=== PATIENT | female | born 1930 | race Caucasian/White ===

== ENCOUNTER 2018-09-03 05:11 | Emergency (ER) | payer BC, MEDICARE ==
[2018-09-03] MEDS ORDERED: Ketorolac 30 MG/ML SDV IM ONE (05:35)
[2018-09-03] MEDS ORDERED: Cyclobenzaprine 10 MG Tab PO ONE (05:35)
[2018-09-03] MEDS ORDERED: Nitroglycerin 0.4 MG Tab.SL SL ONE (05:37)
--- NOTE | 2018-09-03 05:39 | EDM.PDOC ---
<OfficerJay - Last Filed: 09/03/18 05:36> ED HPI GENERAL MEDICAL PROBLEM - General Chief Complaint: Upper Extremity Injury/Pain Stated Complaint: MEDICAL VIA [facility] Time Seen by Provider: 09/03/18 05:31 Source of Information: Reports: Patient, EMS, RN Notes Reviewed History Limitations: Reports: No Limitations - History of Present Illness INITIAL COMMENTS - FREE TEXT/NARRATIVE: 88-year-old female presents to the emergency department today complaint of hip pain she has a known history of hip replacement on her left side she states she has been shoveling snow 34 days ago and now the pain has gotten significantly worse she has been using Tylenol but is not helping she feels like she is having muscle spasms denies any trauma Left Hip Pain Score (Numeric/FACES): 10 - Related Data Allergies Allergy/AdvReac Type Severity Reaction Status Date / Time No Known Allergies Allergy Verified 09/03/18 05:15 Home Meds: Home Meds Losartan/Hydrochlorothiazide [Losartan-HCTZ 100-25 MG] 1 tab PO DAILY 09/03/18 [ History] Sertraline HCl 50 mg PO DAILY 09/03/18 [History] Past Medical History HEENT History: Reports: Cataract, Impaired Vision Cardiovascular History: Reports: Hypertension Gastrointestinal History: Reports: [employer] History: Reports: Musculoskeletal History: Reports: Fracture Neurological History: Reports: Neuropathy, Peripheral Psychiatric History: Reports: Anxiety, Depression Endocrine/Metabolic History: Reports: Diabetes, Type II Oncologic (Cancer) History: Reports: Basal Cell Carcinoma Other Oncologic History: skin cancer Dermatologic History: Reports: Other (See Below) Other Dermatologic History: Skin cancer - Past Surgical History HEENT Surgical History: Reports: Cataract Surgery GI Surgical History: Reports: Appendectomy, Cholecystectomy Female Surgical History: Reports: Hysterectomy Musculoskeletal Surgical History: Reports: Hip Replacement Social & Family History - Tobacco Use Smoking Status *Q: Never Smoker - Recreational Drug Use Recreational Drug Use: No Review of Systems - Review of Systems Review Of Systems: See Below Musculoskeletal: Reports: Joint Pain (Left hip pain), Muscle Pain, Muscle Stiffness ED EXAM, GENERAL - Physical Exam Exam: See Below Free Text/Narrative:: Examination left hip I can't elicit any specific tenderness with internal/ external rotation flexion-extension of left hip she does complain of generalized pain throughout the thigh buttocks area Exam Limited By: No Limitations General Appearance: Alert, WD/WN, No Apparent Distress Respiratory/Chest: No Respiratory Distress Course - Vital Signs Last Recorded V/S: Last Vital Signs Temp 97.0 F 09/03/18 05:17 Pulse 83 09/03/18 06:13 Resp 20 09/03/18 06:13 BP 180/76 H 09/03/18 06:13 Pulse Ox 93 L 09/03/18 06:13 - Orders/Labs/Meds Meds: Medications Discontinued Medications Generic Name Dose Route Start Last Admin Trade Name Latosha PRN Reason Stop Dose Admin Cyclobenzaprine HCl 10 mg 09/03/18 05:35 09/03/18 05:47 Flexeril PO 09/03/18 05:36 10 mg ONETIME ONE Administration Fentanyl 50 mcg 09/03/18 06:11 09/03/18 06:18 Sublimaze IM 09/03/18 06:12 50 mcg ONETIME ONE Administration Ketorolac Tromethamine 15 mg 09/03/18 05:35 09/03/18 05:48 Toradol IM 09/03/18 05:36 15 mg ONETIME ONE Administration Nitroglycerin 0.4 mg 09/03/18 05:37 09/03/18 05:48 Nitrostat SL 09/03/18 05:38 0.4 mg ONETIME ONE Administration Departure - Departure Disposition: Home, Self-Care 01 Clinical Impression: Acute pain of left hip - Discharge Information Instructions: Musculoskeletal Pain Referrals: PCP,None [Primary Care Provider] - Forms: ED Department Discharge Care Plan Goals: Continue any current medications, take 2 Aleve twice daily and add stronger pain medication if needed as prescribed. Increase activity as tolerated and consider rechecking in 2-3 days if not improving satisfactorily as you may need a physical therapy consultation or orthopedic evaluation. <Cale Diaz - Last Filed: 09/03/18 08:44> Course - Re-Assessments/Exams Free Text/Narrative Re-Assessment/Exam: 09/03/18 07:22 Accepted care from Officer pending a hip x-ray. The hip x-ray does show previous hip surgery with total hip as well as internal fixation of the proximal femur. Everything looks good, no new fracture and patient is feeling better. She'll be discharged with 10 Vicodin to use as needed along with Aleve and can recheck if not improving in the next few days. Departure - Departure Time of Disposition: 08:27 Condition: Good
[2018-09-03] MEDS ORDERED: fentaNYL 100 MCG/2 ML SDV IM ONE (06:11)
[2018-09-03 06:13] VITALS: BP 180/76
--- NOTE | 2018-09-03 07:25 | CRLCR ---
INDICATION: Left hip pain TECHNIQUE: AP pelvis and 2 view left hip. COMPARISON: none FINDINGS: The patient has a revised left total hip arthroplasty. The femoral component appears anatomically aligned with respect to the acetabular cup. There has been reinforcement of the proximal and mid left femur with placement of a lateral compression plate and screw device along the greater trochanter extending to the mid diaphysis. In addition two metallic cerclage wires have been placed encompassing the proximal femur within the subtrochanteric level. No fracture line is visible. The pubic rami appear intact. The contralateral right hip shows mild osteoarthritic change but no fracture. Sacroiliac joints appear intact. IMPRESSION: Stable appearance of the left total hip arthroplasty and reinforcing femoral plate and screw device and cerclage wires. Dictated by Rodriguez Posada MD @ 09/03/2018 7:24:14 AM Dictated by: Rodriguez Posada MD @ 09/03/2018 07:24:22 (Electronically Signed)
== END 2018-09-03 08:05 | disposition home or self-care (01) ==
LOC: JP.ED 05:11
DX: M25.552 Pain in left hip (principal); I10 Essential (primary) hypertension; F41.9 Anxiety disorder, unspecified; F32.9 Major depressive disorder, single episode, unspecified; K21.9 Gastro-esophageal reflux disease without esophagitis; E11.42 Type 2 diabetes mellitus with diabetic polyneuropathy; Z79.899 Other long term (current) drug therapy
CPT/HCPCS: 73502; 96372; 99283; A9270; J1885; J3010